=== PATIENT | male | born 1965 | race Caucasian/White ===

== ENCOUNTER 2024-12-13 07:20 | Day surgery (SDC) | payer BC, SELFPAY ==
[2024-12-13] VITALS (10 sets, daily range): BP systolic 141–186; BP diastolic 88–106; PULSE 48–65; RESP 11–18; TEMP 36.1–36.6; O2SAT 95–99; BMI 29.2
[2024-12-13] MEDS: DiphenhydrAMINE INJ 50 MG/ML VIAL 25 MG IV (08:23)
[2024-12-13] MEDS: MIDAZOLAM INJ 1 MG/ML VIAL 2 ML (ASD USE ONLY) 2 MG IV (08:31)
[2024-12-13] MEDS: fentaNYL CIT INJ 50 mCg/ML AMP 2ML (ASD USE ONLY) IV (08:31)
[2024-12-13] MEDS: RINGERS LACTATED 1000 ML 1,000 ML 125 ML IV (08:35)
== END 2024-12-13 09:40 | disposition home or self-care (01) ==
PROVIDERS: PCP Internal Medicine; Referring Provider Surgery; Visit Provider Surgery
PROC: 0DBE8ZX Excision of Large Intestine, Via Natural or Artificial Opening Endoscopic, Diagnostic (ICD-10-PCS; CPT 45380; principal; 2024-12-13 11:45)
DX: Z12.11 Encounter for screening for malignant neoplasm of colon (principal)
CPT/HCPCS: 45378; J1200; J2250; J3010; J7120

== ENCOUNTER 2025-02-18 09:53 | Emergency (ER) | payer BC, SELFPAY ==
[2025-02-18 10:18] VITALS: BP 150/91; PULSE 56; RESP 18; TEMP 36.7; O2SAT 97; BMI 31.0
[2025-02-18] MEDS: DIPHTH,PERTUSS(ACELL),TET VAC 0.5 ML SYR- ADULT IMi (10:39)
[2025-02-18] MEDS: LIDOCAINE HCL 1% 20 ML VIAL INFL (10:43)
--- NOTE | 2025-02-18 11:12 | PD.EDWOUND ---
ED Wound/Laceration-RME/HPI General Chief Complaint: Wound/Laceration Stated Complaint: LACERATION RIGHT MIDDLE FINGER Time Seen by Provider: 02/18/25 09:56 Arrival date/time: 02/18/25 09:53 59-year-old male presents to department today for complaint of laceration right hand middle finger unknown last tetanus Limitations: no limitations Related Data Home Medications ?Medication ?Instructions ?Recorded ?Confirmed lisinopril 20 mg tablet 20 mg PO QDAY 12/13/24 12/13/24 Allergies Allergy/AdvReac Type Severity Reaction Status Date / Time No Known Allergies Allergy Verified 02/18/25 09:55 Review of Systems Review of Systems Systems Reviewed: All systems reviewed, normal except as documented Constitutional Constitutional: Reports system reviewed and no additional complaints, except as documented, Denies fever(s) and Denies headache(s) Eyes Eyes: Reports system reviewed and no additional complaints, except as documented and Denies blurry vision ENT Ears, Nose, Mouth, and Throat: Reports system reviewed and no additional complaints, except as documented, Denies headache(s), Denies nasal congestion and Denies nasal discharge Cardiovascular Cardiovascular: Reports system reviewed and no additional complaints, except as documented, Denies chest pain and Denies dyspnea Respiratory Respiratory: Reports system reviewed and no additional complaints, except as documented, Denies chest congestion, Denies cough and Denies dyspnea Gastrointestinal Gastrointestinal: Reports system reviewed and no additional complaints, except as documented and Denies abdominal pain Integumentary/Breasts Skin/Breast: Reports system reviewed and no additional complaints, except as documented, Denies rash and Reports wounds (Laceration right hand middle finger) Neurologic Neurologic: Reports system reviewed and no additional complaints, except as documented, Reports as per HPI and Denies headache(s) Past Medical History Past Medical History NEUROLOGIC: Positive Neurological Disorders (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), 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) and Seizures (x1 02/18, no history, no medication, as result of cerebral aneurysm); Negative Transient Ischemic Attacks (TIA), Dementia, Parkinson's Disease, Brain Tumor, Meningitis, Epilepsy, Multiple Sclerosis, Cerebral Palsy, Amyotrophic Lateral Sclerosis (ALS/Alba Gehrig's), Guillain-Troy Syndrome, Spina Bifida, Paralysis, Peripheral Neuropathy, Thurston's Palsy, Subdural Hematoma, Migraine, Head Trauma, Spinal Cord Injury or Traumatic Brain Injury CARDIAC: Negative Cardiac Disorders or Congestive Heart Failure RESPIRATORY: Negative Chronic Obstructive Pulmonary Disease (COPD) GASTROINTESTINAL: Negative Gastrointestinal Disorders or Hepatitis GENITOURINARY: Negative Genitourinary Disorders or Renal Disease REPRODUCTIVE: Negative Testicular Cancer MUSCULOSKELETAL: Negative Musculoskeletal Disorders, Muscular Dystrophy, Myasthenia Gravis, Marfan's Syndrome, Arthritis, Osteoporosis, Degenerative Disk Disease, Gout, Scoliosis, Fibromyalgia, Fractures, Degenerative Joint Disease, Osteomyelitis or Poliovirus ENT: Negative Head Trauma ENDOCRINE: Negative Endocrine Disorders, Diabetes Mellitus Type 1 or Diabetes Mellitus Type 2 HEMATOLOGIC: Negative Blood Disorders OTHER HISTORY: Positive Hospitalization (02/18 [place] s/p Hemorrhagic Cerebral Aneurysm); Negative Autoimmune Disease, Down Syndrome, Developmental Delay, Shingles, Falls, Blood Transfusions, Blood Transfusion Reaction, Anesthesia Reactions, Organ Transplant, Chemotherapy, Radiation Therapy, Hyperbaric Therapy, MRSA, VRSA, Vancomycin-Resistant Enterococci, Human Immunodeficiency Virus (HIV), Chicken Pox, Measles, Mumps, Rubella (Vietnamese Measles), Pertussis, Clostridium Difficile, Cancer or Testicular Cancer Family History FAMILY HISTORY: Positive Family Cancer (niece leukemia); Negative Family Psychiatric Problems, Family Respiratory Disorders, Family Cardiac Disorders, Family Gastrointestinal Problems, Family Surgery or Family Anesthesia Reaction Surgical History SURGICAL: Positive Cardiac Surgery (Right Shoulder Arthroscopy. Endovascular Aneurysm repair 02/18) and Neurologic Surgery (Endovascular Aneurysm Repair 02/18); Negative Endocrine Surgery, Ear Surgery, Abdominal Surgery, Nephrectomy, Joint Replacement, Vasectomy or Organ Transplant Social History SMOKING STATUS: Never smoker ED Exam General Limitations: Present no limitations General appearance: Present alert and in no apparent distress Head Head exam: Present atraumatic Eye Eye exam: Present normal appearance, PERRL and EOMI ENT ENT exam: Present normal exam, normal oropharynx and mucous membranes moist Neck Neck exam: Present normal inspection, full ROM and trachea midline Chest Chest inspection: Present normal inspection and symmetric chest wall rise Respiratory Respiratory exam: Present normal lung sounds bilaterally Cardiovascular Cardiovascular exam: Present regular rate, normal rhythm and normal heart sounds Abdominal Exam Abdominal exam: Present soft and normal bowel sounds Extremities Exam Extremities exam: Present normal inspection and full ROM Back Exam Back exam: Present normal inspection and full ROM Neurological Exam Neurological exam: Present alert, oriented X3, CN II-XII intact, normal gait and reflexes normal; Absent motor sensory deficit Psychiatric Psychiatric exam: Present normal affect and normal mood Skin Skin exam: Present warm, dry and other (Laceration right hand middle finger) Course Quality Measures none Orders Category Date Time Status Set Up Suture Tray STAT Care 02/18/25 10:26 Completed Wound Care NOW Care 02/18/25 10:26 Completed Lidocaine 1% 20 ml [Xylocaine 1% 20 ML] Med 02/18/25 10:26 Discontinued 20 ml INFL X1 ONE TET,DIP/PERT AC (Adult)-Tdap [Boostrix Adult (Tdap) Med 02/18/25 10:26 Discontinued Vacc] 0.5 ml IMI .ONCE ONE Vital Signs Vital signs: Vital Signs Temperature 98.0 F 02/18/25 10:18 Pulse Rate 56 L 02/18/25 10:18 Respiratory Rate 18 02/18/25 10:18 Blood Pressure 150/91 H 02/18/25 10:18 Pulse Oximetry (%) 97 02/18/25 10:18 Oxygen Delivery Method Room Air 02/18/25 10:18 O2 saturation 97% on room air within normal limit Wound / Laceration MDM Narrative MDM Narrative:: 59-year-old male presents to department today for complaint of laceration right hand middle finger unknown last tetanus On exam patient has laceration right hand middle finger Wound irrigated copiously laceration repaired with total of 10 sutures there is no evidence of tendon or ligamentous injury lacerations on the palmar aspect of the left hand distal aspect Patient has full range of motion of all digits Tetanus updated Patient discharged home in no distress to follow-up with primary care doctor in the next 24 to 48 hours and for any worsening symptoms to return to the ER immediately Patient data External records reviewed:: [facility] previous records Clinical information provided by:: patient Social determinants that could affect healthcare access:: none Patient has the following chronic illnesses:: See history How is presenting disease/condition affected by chronic disease/condition?: uneffected by Evaluation data The following diagnostics were reviewed and interpreted by me:: other (specify) (N/A) Lab and/or radiology exams considered but not ordered:: Consider not ordered Interpretation Summary: N/A Medications / Prescriptions Medications or Prescriptions considered but not ordered:: Given Medication administrations:: Medication Administration History Discontinued Medications Diphtheria/Tetanus/Acell Pertussis (Diphth,Pertuss(Acell),Tet Vac 0.5 Ml Syr- Adult) 0.5 ml IMi .ONCE ONE Stop: 02/18/25 10:27 Last Admin: 02/18/25 10:39 Dose: 0.5 ml Documented By: SIMONA Lidocaine HCl (Lidocaine Hcl 1% 20 Ml Vial) 20 ml INFL X1 ONE Stop: 02/18/25 10:27 Last Admin: 02/18/25 10:43 Dose: 20 ml Documented By: SIMONA Given Consultations Consultation(s) initiated? (list below): No Diagnosis Wound Differential Diagnosis: laceration and avulsion of skin Most likely diagnosis given after review of the tests above:: Laceration Admission Indicated Admission indicated?: not indicated Admission Request Was there a request for admission?: No Disposition Plan Disposition Plan: Discharge Discharge Attestation Discharge Attestation: The patient and all family members were given an opportunity to ask questions and understood the discharge instructions. Discharge instructions specifically effects, indications for sooner follow up or return to the emergency department, and the expected course of current diagnosis. Patient condition: Stable Discharge Plan Plan Patient Disposition: HOME (Self Care) Discharge Disposition comment: Stable Prescriptions/Referrals Prescriptions/Med Rec: No Action lisinopril 20 mg tablet 20 mg PO QDAY Problem List Clinical Impression: Laceration of hand, right Patient/Caregiver Discharge Instructions Education Materials: ED Laceration: All Closures Additional Instructions: Please follow up with your primary care doctor in the next 24-48hrs for any worsening symptoms return here immediately Please have sutures removed in 10 to 14 days Print Language: Burundian Stand Alone Forms: Micaela Award Info., Patient Portal Info Letter Vaccines Vaccines Given During Stay: TDaP PA/RINA Supervising Physician ROMY/RINA Supervising Physician: Dr. krishna
== END 2025-02-18 11:17 | disposition home or self-care (01) ==
LOC: SERX 11:47
PROVIDERS: Emergency Provider Family Medicine
DX: S61.212A Laceration without foreign body of right middle finger without damage to nail, initial encounter (principal); X58.XXXA Exposure to other specified factors, initial encounter; Z23 Encounter for immunization
CPT/HCPCS: 12001; 90471; 90715; 99283; J3490